=== PATIENT | female | born 1950 | race Hispanic/Latino ===

== ENCOUNTER 2017-01-12 09:32 | Day surgery (SDC) | payer OTHER ==
[2017-01-12 11:44] LABS: Basophils % (Auto) 0.6 % (0.0-1.8); Eosinophils % (Auto) 1.4 % (0.0-4.3); Hematocrit 28.2 % (30.3-42.9); Hemoglobin 9.3 gm/dl (10.1-14.3); Mean Corpuscular HGB Conc 33 % (30-34); Platelet Count 425 K/mm3 (140-440); Red Blood Count 4.13 M/mm3 (3.65-5.03); Red Cell Distribution Width 19.8 % (13.2-15.2)
[2017-01-12 11:45] LABS: Mean Corpuscular Hemoglobin 22 pg (28-32); Mean Corpuscular Volume 68 fl (79-97)
--- NOTE | 2017-01-12 11:45 | Anesthesia Day of Surgery ---
Anesthesia Day of Surgery - Day of Surgery Patient Examined: Yes Patient H&P Reviewed: Yes Patient is NPO: Yes
--- NOTE | 2017-01-12 11:47 | Anesthesia Consultation ---
Anesthesia Consult and Med Hx Date of service: 01/12/17 - Airway Anesthetic Teeth Evaluation: Good ROM Head & Neck: Adequate Mental/Hyoid Distance: Adequate Mallampati Class: Class II Intubation Access Assessment: Probably Good - Pulmonary Exam CTA: Yes - Cardiac Exam Cardiac Exam: RRR - Pre-Operative Health Status ASA Pre-Surgery Classification: ASA3 Proposed Anesthetic Plan: General - Pulmonary Hx Smoking: No Hx Sleep Apnea: Yes (DX SLEEP APNEA WITH CPAP USE) - Cardiovascular System Hx Hypertension: Yes (X 30 YRS. HL) - Gastrointestinal Hx Ulcer: Yes - Endocrine Hx Insulin Dependent Diabetes: No (pre-diabetic.) Hx Hypothyroidism: Yes - Other Systems Hx Cancer: No
[2017-01-12] MEDS ORDERED: PEPCID PO NR (12:00)
[2017-01-12] MEDS: NACL 0.9% 1000 ML 1,000 ML IV SCH ×2 (12:01→15:03)
[2017-01-12] MEDS ORDERED: HYDROGEN PEROXIDE ONE (12:09)
[2017-01-12] MEDS ORDERED: MARCAINE-EPI/PF 0.25%-1:200,000 INFILTRATI ONE (12:10)
[2017-01-12] MEDS ORDERED: DIPRIVAN 10 MG/ML IV ONE (12:26)
[2017-01-12] MEDS ORDERED: DILAUDID ONE (12:26)
[2017-01-12] MEDS ORDERED: NACL 0.9% IR ONE (12:51)
[2017-01-12] MEDS ORDERED: XYLOCAINE MPF 2% ONE (12:57)
[2017-01-12] MEDS ORDERED: ANCEF/STERILE WATER 2 GM/20 ML IV NR (13:00)
[2017-01-12] MEDS ORDERED: DECADRON ONE (13:07)
[2017-01-12] MEDS ORDERED: ZOFRAN ONE (13:07)
--- NOTE | 2017-01-12 14:27 | Post Operative Note ---
Pre-op diagnosis: Suprapubic abscess Post-op diagnosis: same (secondary to infected pelvic hardware) Findings: Abscess cavity tracked all the way down to her symphysis with exposure of orthopedic hardware. Procedure: Complicated I&D Anesthesia: other (LMA) Surgeon: AMADEO PEREZ Estimated blood loss: minimal Pathology: list (aerobic and anaerobic C&S) Specimen disposition: to lab Condition: stable Disposition: PACU
[2017-01-12] MEDS ORDERED: NEO SYNEPHRINE/NS Syringe(OR USE) IV ONE (14:30)
[2017-01-12] MEDS ORDERED: ZOFRAN IV PRN (14:49)
[2017-01-12] MEDS ORDERED: DILAUDID IV PRN (14:49)
--- NOTE | 2017-01-12 14:51 | Post Anesthesia Evaluation ---
- Post Anesthesia Evaluation Patient Participated: Yes Airway Patent: Yes Stable Respiratory Function: Yes Nausea/Vomiting: No Temp > 96.8F: Yes Pain Manageable: Yes Adequeate Hydration: Yes Anesthesia Complications: No
[2017-01-12] MEDS ORDERED: TRANSDERM-SCOP TD ONE (16:10)
[2017-01-12] MEDS ORDERED: PHENERGAN PR ONE (16:47)
[2017-01-12 17:38] VITALS: BP 104/51
--- NOTE | 2017-01-13 08:42 | XRay Report ---
Pelvis 2 views: History: Abscess. 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 Stable hardware. Internal fixation of acetabular fracture also is stable. No evidence of acute fracture or dislocation is present. No previous studies are available for comparison. Impression: Findings as described.
--- NOTE | 2017-01-17 11:00 | Operative Report ---
Operative Report Operative Report: Date of operation: 01/12/2017 Preoperative diagnosis: Suprapubic abscess Postoperative diagnosis: Same, secondary to infected orthopedic hardware related to her hip fracture in 1995. Procedure: Complicated I&D of above Surgeon: Peña Sierra M.D. Findings: The abscess cavity/tract tunneled all the way down to her symphysis pubis at which point 2 screws securing a piece of orthopedic hardware were identified. Anesthesia: LMA EBL: Minimal There were no complications, drains or specimens. Gram stain, aerobic and anaerobic cultures of the purulent fluid within the wound were obtained. Description of procedure: Patient was placed supine on the operating room table. General anesthesia was obtained. Abdomen was prepped and draped. A transverse incision was made over the draining site in her suprapubic area. This was followed deep. The tract continued through the subcutaneous tissue down to the fascia over the symphysis pubis. At the symphysis, to orthopedic screws securing a piece of hardware were identified. The infectious tract continued along the brim of the right pelvis with the length of the tract encompassing an entire Elisa clamp. A plain film of the pelvis was then obtained to determine the extent of the hardware. This revealed the hardware to be in place over the entire right pelvic brim. Dr. Lyman of orthopedic surgery was consulted. We mutually agreed that packing the wound was in the patient's best interest. She will be referred to an orthopedic surgeon in [place] for consideration of removal of the entire piece of orthopedic hardware. The wound was packed open with a dilute Betadine moistened Kerlix roll followed by dry 4 x 4's and tape. Patient tolerated the procedure well. She was taken to PACU in stable condition.
== END 2017-01-12 18:20 | disposition home or self-care (01) ==
LOC: OR 09:32
PROVIDERS: ATTEND Surgery
DX: L02.818 Cutaneous abscess of other sites (principal); T84.7XXA Infection and inflammatory reaction due to other internal orthopedic prosthetic devices, implants and grafts, initial encounter; Y83.8 Other surgical procedures as the cause of abnormal reaction of the patient, or of later complication, without mention of misadventure at the time of the procedure; I10 Essential (primary) hypertension; E11.9 Type 2 diabetes mellitus without complications; K21.9 Gastro-esophageal reflux disease without esophagitis; E03.9 Hypothyroidism, unspecified; Z79.899 Other long term (current) drug therapy
CPT/HCPCS: 10061; 36415; 72170; 82962; 85025; 87075; 87116; J0690; J1170; J2370; J2405; J2704; J7030; J1100

== ENCOUNTER 2017-01-13 09:16 | Outpatient (CLI) | payer OTHER | END 2017-01-13 09:17 | disposition home or self-care (01) | LOC: WOUND 09:16 | PROVIDERS: ATTEND Surgery | DX: T81.89XA Other complications of procedures, not elsewhere classified, initial encounter (principal); I10 Essential (primary) hypertension; E78.00 Pure hypercholesterolemia, unspecified; Y83.8 Other surgical procedures as the cause of abnormal reaction of the patient, or of later complication, without mention of misadventure at the time of the procedure; Y92.89 Other specified places as the place of occurrence of the external cause | CPT/HCPCS: 99215; G0463 ==

== ENCOUNTER 2017-01-17 13:04 | Outpatient (CLI) | payer OTHER ==
[2017-01-17] MEDS ORDERED: XYLOCAINE TOPICAL 4% TP ONE ×2 (13:19→16:29)
== END 2017-01-17 13:05 | disposition home or self-care (01) ==
LOC: WOUND 13:04
PROVIDERS: ATTEND Surgery
DX: T81.89XD Other complications of procedures, not elsewhere classified, subsequent encounter (principal); E78.00 Pure hypercholesterolemia, unspecified; I10 Essential (primary) hypertension; Y83.8 Other surgical procedures as the cause of abnormal reaction of the patient, or of later complication, without mention of misadventure at the time of the procedure
CPT/HCPCS: 99214; G0463

== ENCOUNTER 2017-01-24 10:57 | Outpatient (CLI) | payer OTHER ==
[2017-01-24] MEDS ORDERED: XYLOCAINE TOPICAL 4% TP ONE ×2 (11:47→12:00)
== END 2017-01-24 10:58 | disposition home or self-care (01) ==
LOC: WOUND 10:57
PROVIDERS: ATTEND Surgery
DX: T81.89XD Other complications of procedures, not elsewhere classified, subsequent encounter (principal); E78.00 Pure hypercholesterolemia, unspecified; I10 Essential (primary) hypertension; Y83.8 Other surgical procedures as the cause of abnormal reaction of the patient, or of later complication, without mention of misadventure at the time of the procedure
CPT/HCPCS: 99213; G0463

== ENCOUNTER 2017-02-01 12:31 | Outpatient (CLI) | payer OTHER ==
[2017-02-01] MEDS ORDERED: XYLOCAINE TOPICAL 4% TP ONE ×2 (12:38→12:43)
== END 2017-02-01 12:32 | disposition home or self-care (01) ==
LOC: WOUND 12:31
PROVIDERS: ATTEND Surgery
DX: T81.89XD Other complications of procedures, not elsewhere classified, subsequent encounter (principal); E78.00 Pure hypercholesterolemia, unspecified; I10 Essential (primary) hypertension; Y83.8 Other surgical procedures as the cause of abnormal reaction of the patient, or of later complication, without mention of misadventure at the time of the procedure
CPT/HCPCS: 99214; G0463

== ENCOUNTER 2017-02-08 12:58 | Outpatient (CLI) | payer OTHER ==
[2017-02-08] MEDS ORDERED: XYLOCAINE TOPICAL 4% TP ONE ×2 (13:11→13:15)
== END 2017-02-08 12:59 | disposition home or self-care (01) ==
LOC: WOUND 12:58
PROVIDERS: ATTEND Surgery
DX: T81.89XD Other complications of procedures, not elsewhere classified, subsequent encounter (principal); E78.00 Pure hypercholesterolemia, unspecified; I10 Essential (primary) hypertension; Y83.8 Other surgical procedures as the cause of abnormal reaction of the patient, or of later complication, without mention of misadventure at the time of the procedure
CPT/HCPCS: 99214; G0463

== ENCOUNTER 2017-02-15 14:01 | Outpatient (CLI) | payer OTHER | END 2017-02-15 14:02 | disposition home or self-care (01) | LOC: WOUND 14:01 | PROVIDERS: ATTEND Surgery | DX: T81.89XD Other complications of procedures, not elsewhere classified, subsequent encounter (principal); I10 Essential (primary) hypertension; E78.00 Pure hypercholesterolemia, unspecified; Z96.641 Presence of right artificial hip joint; Y83.8 Other surgical procedures as the cause of abnormal reaction of the patient, or of later complication, without mention of misadventure at the time of the procedure | CPT/HCPCS: 99214; G0463 ==

== ENCOUNTER 2017-02-22 12:56 | Outpatient (CLI) | payer OTHER ==
[2017-02-22] MEDS ORDERED: XYLOCAINE TOPICAL 4% TP ONE ×2 (13:14→13:17)
== END 2017-02-22 12:57 | disposition home or self-care (01) ==
LOC: WOUND 12:56
PROVIDERS: ATTEND Surgery
DX: T81.89XD Other complications of procedures, not elsewhere classified, subsequent encounter (principal); E78.00 Pure hypercholesterolemia, unspecified; I10 Essential (primary) hypertension; Z96.641 Presence of right artificial hip joint; Y83.8 Other surgical procedures as the cause of abnormal reaction of the patient, or of later complication, without mention of misadventure at the time of the procedure
CPT/HCPCS: 99214; G0463

== ENCOUNTER 2017-03-01 13:08 | Outpatient (CLI) | payer OTHER ==
[2017-03-01] MEDS ORDERED: XYLOCAINE TOPICAL 4% TP ONE ×2 (13:40→13:44)
== END 2017-03-01 13:09 | disposition home or self-care (01) ==
LOC: WOUND 13:08
PROVIDERS: ATTEND Surgery
DX: T81.89XD Other complications of procedures, not elsewhere classified, subsequent encounter (principal); E78.00 Pure hypercholesterolemia, unspecified; I10 Essential (primary) hypertension; Z96.641 Presence of right artificial hip joint; Y83.8 Other surgical procedures as the cause of abnormal reaction of the patient, or of later complication, without mention of misadventure at the time of the procedure
CPT/HCPCS: 99214; G0463

== ENCOUNTER 2017-03-08 13:07 | Outpatient (CLI) | payer OTHER ==
[2017-03-08] MEDS ORDERED: XYLOCAINE TOPICAL 4% TP ONE ×2 (13:16→13:24)
== END 2017-03-08 13:08 | disposition home or self-care (01) ==
LOC: WOUND 13:07
PROVIDERS: ATTEND Surgery
DX: T81.89XD Other complications of procedures, not elsewhere classified, subsequent encounter (principal); E78.00 Pure hypercholesterolemia, unspecified; I10 Essential (primary) hypertension; Y83.8 Other surgical procedures as the cause of abnormal reaction of the patient, or of later complication, without mention of misadventure at the time of the procedure
CPT/HCPCS: 99214; G0463

== ENCOUNTER 2017-03-22 12:55 | Outpatient (CLI) | payer OTHER ==
[~2017-03-22 12:55] MED LIST: MOTRIN PO ONE; NACL 0.9% 1000 ML 1,000 ML ONE
[2017-03-22] MEDS ORDERED: XYLOCAINE TOPICAL 4% TP ONE ×2 (13:18→13:22)
== END 2017-03-22 12:56 | disposition home or self-care (01) ==
LOC: WOUND 12:55
PROVIDERS: ATTEND Surgery
DX: T81.89XD Other complications of procedures, not elsewhere classified, subsequent encounter (principal); E78.00 Pure hypercholesterolemia, unspecified; I10 Essential (primary) hypertension; Y83.8 Other surgical procedures as the cause of abnormal reaction of the patient, or of later complication, without mention of misadventure at the time of the procedure
CPT/HCPCS: 11042; J7030

== ENCOUNTER 2017-03-29 13:25 | Outpatient (CLI) | payer OTHER | END 2017-03-29 13:26 | disposition home or self-care (01) | LOC: WOUND 13:25 | PROVIDERS: ATTEND Surgery | DX: T81.89XD Other complications of procedures, not elsewhere classified, subsequent encounter (principal); E78.00 Pure hypercholesterolemia, unspecified; I10 Essential (primary) hypertension; Y83.8 Other surgical procedures as the cause of abnormal reaction of the patient, or of later complication, without mention of misadventure at the time of the procedure ==

== ENCOUNTER 2017-04-05 13:01 | Outpatient (CLI) | payer OTHER ==
[2017-04-05] MEDS ORDERED: XYLOCAINE TOPICAL 4% TP ONE (13:46)
== END 2017-04-05 13:02 | disposition home or self-care (01) ==
LOC: WOUND 13:01
PROVIDERS: ATTEND Surgery
DX: T81.89XD Other complications of procedures, not elsewhere classified, subsequent encounter (principal); E78.00 Pure hypercholesterolemia, unspecified; I10 Essential (primary) hypertension; Y83.8 Other surgical procedures as the cause of abnormal reaction of the patient, or of later complication, without mention of misadventure at the time of the procedure

== ENCOUNTER 2017-04-25 13:10 | Outpatient (CLI) | payer OTHER ==
[2017-04-25] MEDS ORDERED: XYLOCAINE TOPICAL 4% TP ONE ×2 (13:43→13:52)
== END 2017-04-25 13:11 | disposition home or self-care (01) ==
LOC: WOUND 13:10
PROVIDERS: ATTEND Surgery
DX: T81.89XD Other complications of procedures, not elsewhere classified, subsequent encounter (principal); I10 Essential (primary) hypertension; E78.00 Pure hypercholesterolemia, unspecified; Y83.8 Other surgical procedures as the cause of abnormal reaction of the patient, or of later complication, without mention of misadventure at the time of the procedure; Z96.641 Presence of right artificial hip joint

== ENCOUNTER 2017-05-03 13:17 | Outpatient (CLI) | payer OTHER ==
[2017-05-03] MEDS ORDERED: XYLOCAINE TOPICAL 4% TP ONE (14:00)
== END 2017-05-03 13:18 | disposition home or self-care (01) ==
LOC: WOUND 13:17
PROVIDERS: ATTEND Surgery
DX: T81.89XD Other complications of procedures, not elsewhere classified, subsequent encounter (principal); E78.00 Pure hypercholesterolemia, unspecified; I10 Essential (primary) hypertension; Y83.8 Other surgical procedures as the cause of abnormal reaction of the patient, or of later complication, without mention of misadventure at the time of the procedure

== ENCOUNTER 2017-05-17 13:17 | Outpatient (CLI) | payer OTHER ==
[2017-05-17] MEDS ORDERED: XYLOCAINE TOPICAL 4% TP ONE ×2 (13:38→14:56)
== END 2017-05-17 13:18 | disposition home or self-care (01) ==
LOC: WOUND 13:17
PROVIDERS: ATTEND Surgery
DX: T81.89XD Other complications of procedures, not elsewhere classified, subsequent encounter (principal); E78.00 Pure hypercholesterolemia, unspecified; I10 Essential (primary) hypertension; Y83.8 Other surgical procedures as the cause of abnormal reaction of the patient, or of later complication, without mention of misadventure at the time of the procedure

== ENCOUNTER 2017-05-24 12:58 | Outpatient (CLI) | payer OTHER ==
[2017-05-24] MEDS ORDERED: XYLOCAINE TOPICAL 2% 5ML ONE (13:07)
[2017-05-24] MEDS ORDERED: XYLOCAINE TOPICAL 2% 5ML TP ONE (13:23)
== END 2017-05-24 12:59 | disposition home or self-care (01) ==
LOC: WOUND 12:58
PROVIDERS: ATTEND Surgery
DX: T81.89XD Other complications of procedures, not elsewhere classified, subsequent encounter (principal); I10 Essential (primary) hypertension; E78.5 Hyperlipidemia, unspecified; Z96.641 Presence of right artificial hip joint; Y83.8 Other surgical procedures as the cause of abnormal reaction of the patient, or of later complication, without mention of misadventure at the time of the procedure

== ENCOUNTER 2017-05-31 12:55 | Outpatient (CLI) | payer OTHER ==
[2017-05-31] MEDS ORDERED: XYLOCAINE TOPICAL 2% 5ML ONE (13:15)
[2017-05-31] MEDS ORDERED: XYLOCAINE TOPICAL 2% 5ML TP ONE (14:20)
== END 2017-05-31 12:56 | disposition home or self-care (01) ==
LOC: WOUND 12:55
PROVIDERS: ATTEND Surgery
DX: T81.89XD Other complications of procedures, not elsewhere classified, subsequent encounter (principal); E78.00 Pure hypercholesterolemia, unspecified; I10 Essential (primary) hypertension; Z96.641 Presence of right artificial hip joint; Y83.8 Other surgical procedures as the cause of abnormal reaction of the patient, or of later complication, without mention of misadventure at the time of the procedure